=== PATIENT | male | born 1970 | race African-American/Black ===

== ENCOUNTER 2022-01-12 13:53 | Inpatient (IN) | payer OTHER ==
[2022-01-12 15:02] VITALS: BMI 23.7
[2022-01-12] MEDS ORDERED: ACETAMINOPHEN 325 MG TABLET (FP) PO PRN (16:20)
[2022-01-12] MEDS ORDERED: BISMUTH SUBSALICYLATE 524 MG/30 ML PO PRN (16:20)
[2022-01-12] MEDS ORDERED: NALOXONE (NARCAN) HCL 4 MG/0.1 ML SPRAY NS PRN (16:20)
[2022-01-12] MEDS ORDERED: MAG HYDROX/AL HYDROX/SIMETH 30 ML UNIT-DOSE CUP PO PRN (16:20)
[2022-01-12] MEDS ORDERED: MENTHOL/PHENOL 1 EACH UD MM PRN (16:20)
[2022-01-12] MEDS ORDERED: LOPERAMIDE HCL 2 MG CAPSULE PO PRN (16:20)
[2022-01-12] MEDS ORDERED: ONDANSETRON *ODT* 4 MG TABLET SL PRN (16:20)
[2022-01-12] MEDS ORDERED: IBUPROFEN 400 MG TABLET (FP) PO PRN (16:20)
[2022-01-12] MEDS: hydrOXYzine PAMOATE 25 MG CAPSULE (FP) PO SCH ×2 (17:40→23:04)
[2022-01-12] MEDS: THIAMINE HCL 100 MG TABLET (FP) PO SCH (23:04)
[2022-01-12] MEDS: MELATONIN 5 MG TABLETS PO SCH (23:04)
[2022-01-13] MEDS ORDERED: methaDONE HCL 10 MG TABLET (FOR DETOX USE ONLY) PO ONE (02:00)
[2022-01-13] MEDS ORDERED: cloNIDine HCL 0.1 MG TABLET PO PRN (02:00)
[2022-01-13] MEDS: hydrOXYzine PAMOATE 25 MG CAPSULE (FP) PO SCH ×5 (05:07→22:41)
[2022-01-13] MEDS: NICOTINE 10 MG CARTRIDGE (INHALER) IH PRN ×4 (05:37→22:42)
[2022-01-13] MEDS: METHOCARBAMOL 500 MG TABLET PO PRN (10:49)
[2022-01-13] MEDS: PRENATAL VITAMINS W/ FOLIC ACID TABLET (FP) PO SCH (10:49)
[2022-01-13 10:52] LABS: HEMATOCRIT 39.6 % (35.4-49); HEMOGLOBIN 13.6 GM/dL (11.7-16.9); MCH 30.5 pg (25.7-33.7); MCHC 34.3 g/dl (32.0-35.9); MEAN PLT VOLUME 7.8 fl (7.5-11.1); PLATELET COUNT 221 10^3/uL (134-434); RBC 4.45 M/mm3 (4.00-5.60); RDW 13.2 % (11.9-15.9); WHITE BLOOD COUNT 6.8 K/mm3 (4.0-10.0)
[2022-01-13 11:07] LABS: CREATININE 1.8 mg/dL (0.55-1.3)
[2022-01-13 11:09] LABS: BILIRUBIN,TOTAL 0.3 mg/dL (0.2-1); TOT PROT 7.9 g/dl (6.4-8.2)
[2022-01-13 11:12] LABS: BLOOD UREA NITROGEN 18.2 mg/dL (7-18)
[2022-01-13 11:13] LABS: CALCIUM 8.8 mg/dL (8.5-10.1)
[2022-01-13] MEDS: PANTOPRAZOLE 20 MG TABLET PO SCH (13:01)
[2022-01-13] MEDS: levETIRAcetam XR 750 MG TAB PO SCH ×2 (15:34→22:41)
[2022-01-13] MEDS: MAGNESIUM HYDROX 2400MG/30ML ORAL SUSPENSION 30 ML CUP PO PRN (18:48)
[2022-01-13] MEDS: THIAMINE HCL 100 MG TABLET (FP) PO SCH (22:40)
[2022-01-13] MEDS: MELATONIN 5 MG TABLETS PO SCH (22:40)
[2022-01-13] MEDS: RIVAROXABAN 15 MG TABLET PO SCH (22:57)
[2022-01-14] MEDS: hydrOXYzine PAMOATE 25 MG CAPSULE (FP) PO SCH ×5 (06:21→22:05)
[2022-01-14] MEDS: MAGNESIUM HYDROX 2400MG/30ML ORAL SUSPENSION 30 ML CUP PO PRN ×2 (06:22→23:17)
[2022-01-14] MEDS: NICOTINE 10 MG CARTRIDGE (INHALER) IH PRN ×4 (08:44→22:09)
[2022-01-14] MEDS ORDERED: methaDONE HCL 10 MG TABLET (FOR DETOX USE ONLY) ONE (09:19)
[2022-01-14] MEDS: HYDROCHLOROTHIAZIDE 25 MG TABLET (FP) PO SCH (10:40)
[2022-01-14] MEDS: levETIRAcetam XR 750 MG TAB PO SCH ×2 (10:40→22:05)
[2022-01-14] MEDS: PRENATAL VITAMINS W/ FOLIC ACID TABLET (FP) PO SCH (10:40)
[2022-01-14] MEDS: PANTOPRAZOLE 20 MG TABLET PO SCH (10:40)
[2022-01-14] MEDS ORDERED: HYDROCHLOROTHIAZIDE 12.5 MG CAPSULE (FP) PO SCH (14:00)
[2022-01-14 14:08] LABS: SARS-CoV-2 NAA Not Detected (Not Detected)
[2022-01-14] MEDS: MELATONIN 5 MG TABLETS PO SCH (22:05)
[2022-01-14] MEDS: THIAMINE HCL 100 MG TABLET (FP) PO SCH (22:06)
[2022-01-14] MEDS: RIVAROXABAN 15 MG TABLET PO SCH (22:08)
[2022-01-15] MEDS: hydrOXYzine PAMOATE 25 MG CAPSULE (FP) PO SCH ×5 (05:05→22:15)
[2022-01-15] MEDS: MAGNESIUM CITRATE 300 ML BOTTLE PO PRN (08:10)
[2022-01-15] MEDS: NICOTINE 10 MG CARTRIDGE (INHALER) IH PRN ×3 (08:40→22:17)
[2022-01-15] MEDS ORDERED: methaDONE HCL 10 MG TABLET (FOR DETOX USE ONLY) PO ONE (10:00)
[2022-01-15] MEDS: PANTOPRAZOLE 20 MG TABLET PO SCH (10:34)
[2022-01-15] MEDS: PRENATAL VITAMINS W/ FOLIC ACID TABLET (FP) PO SCH (10:34)
[2022-01-15] MEDS: HYDROCHLOROTHIAZIDE 25 MG TABLET (FP) PO SCH (10:34)
[2022-01-15] MEDS: levETIRAcetam XR 750 MG TAB PO SCH ×2 (10:34→22:15)
[2022-01-15 11:15] LABS: BLOOD UREA NITROGEN 14.6 mg/dL (7-18); CALCIUM 8.9 mg/dL (8.5-10.1)
[2022-01-15] MEDS: DOCUSATE SODIUM 100 MG CAPSULE (FP) PO SCH ×2 (14:31→22:15)
[2022-01-15] MEDS: RIVAROXABAN 15 MG TABLET PO SCH (17:36)
[2022-01-15] MEDS: THIAMINE HCL 100 MG TABLET (FP) PO SCH (22:15)
[2022-01-15] MEDS: MELATONIN 5 MG TABLETS PO SCH (22:16)
[2022-01-16] MEDS: NICOTINE 10 MG CARTRIDGE (INHALER) IH PRN ×5 (02:31→22:23)
[2022-01-16] MEDS: hydrOXYzine PAMOATE 25 MG CAPSULE (FP) PO SCH ×5 (05:45→22:20)
[2022-01-16] MEDS: DOCUSATE SODIUM 100 MG CAPSULE (FP) PO SCH ×3 (05:45→22:21)
[2022-01-16] MEDS ORDERED: methaDONE HCL 10 MG TABLET (FOR DETOX USE ONLY) ONE (09:33)
[2022-01-16] MEDS: HYDROCHLOROTHIAZIDE 25 MG TABLET (FP) PO SCH (10:08)
[2022-01-16] MEDS: PANTOPRAZOLE 20 MG TABLET PO SCH (10:10)
[2022-01-16] MEDS: PRENATAL VITAMINS W/ FOLIC ACID TABLET (FP) PO SCH (10:11)
[2022-01-16] MEDS: levETIRAcetam XR 750 MG TAB PO SCH ×2 (10:11→22:21)
[2022-01-16] MEDS: ACETAMINOPHEN 325 MG TABLET (FP) PO PRN ×2 (10:16→22:22)
[2022-01-16] MEDS: METHOCARBAMOL 500 MG TABLET PO PRN (15:05)
[2022-01-16] MEDS: RIVAROXABAN 15 MG TABLET PO SCH (17:28)
[2022-01-16] MEDS: MELATONIN 5 MG TABLETS PO SCH (22:21)
[2022-01-16] MEDS: THIAMINE HCL 100 MG TABLET (FP) PO SCH (22:21)
[2022-01-17] MEDS: NICOTINE 10 MG CARTRIDGE (INHALER) IH PRN ×4 (01:49→23:16)
[2022-01-17] MEDS: DOCUSATE SODIUM 100 MG CAPSULE (FP) PO SCH ×3 (06:05→22:23)
[2022-01-17] MEDS: hydrOXYzine PAMOATE 25 MG CAPSULE (FP) PO SCH ×5 (06:05→22:23)
[2022-01-17] MEDS: ACETAMINOPHEN 325 MG TABLET (FP) PO PRN ×3 (06:06→20:26)
[2022-01-17] MEDS ORDERED: methaDONE HCL 10 MG TABLET (FOR DETOX USE ONLY) PO ONE (10:00)
[2022-01-17] MEDS: HYDROCHLOROTHIAZIDE 25 MG TABLET (FP) PO SCH (10:28)
[2022-01-17] MEDS: PRENATAL VITAMINS W/ FOLIC ACID TABLET (FP) PO SCH (10:28)
[2022-01-17] MEDS: PANTOPRAZOLE 20 MG TABLET PO SCH (10:28)
[2022-01-17] MEDS: levETIRAcetam XR 750 MG TAB PO SCH ×2 (10:31→22:23)
[2022-01-17] MEDS: MAGNESIUM CITRATE 300 ML BOTTLE PO PRN (14:48)
[2022-01-17] MEDS: RIVAROXABAN 15 MG TABLET PO SCH (17:33)
[2022-01-17] MEDS: MELATONIN 5 MG TABLETS PO SCH (22:23)
[2022-01-17] MEDS: THIAMINE HCL 100 MG TABLET (FP) PO SCH (22:23)
[2022-01-18] MEDS: DOCUSATE SODIUM 100 MG CAPSULE (FP) PO SCH (06:24)
[2022-01-18] MEDS: hydrOXYzine PAMOATE 25 MG CAPSULE (FP) PO SCH ×2 (06:24→10:18)
[2022-01-18] MEDS: NICOTINE 10 MG CARTRIDGE (INHALER) IH PRN (09:10)
[2022-01-18] MEDS: levETIRAcetam XR 750 MG TAB PO SCH (10:17)
[2022-01-18] MEDS: PRENATAL VITAMINS W/ FOLIC ACID TABLET (FP) PO SCH (10:17)
[2022-01-18] MEDS: PANTOPRAZOLE 20 MG TABLET PO SCH (10:17)
[2022-01-18] MEDS: HYDROCHLOROTHIAZIDE 25 MG TABLET (FP) PO SCH (10:18)
[2022-01-18] MEDS: METHOCARBAMOL 500 MG TABLET PO PRN (10:27)
[2022-01-18 10:51] VITALS: BP 95/71; PULSE 68; TEMP 97
== END 2022-01-18 11:44 | disposition home or self-care (01) | DRG 773 ==
LOC: YASAS 13:53 → Y6N 17:21
PROVIDERS: ADMIT Allergy & Immunology; ATTEND Allergy & Immunology
PROC: HZ2ZZZZ Detoxification Services for Substance Abuse Treatment (ICD-10-PCS; principal; 2022-01-12)
DX: F11.23 Opioid dependence with withdrawal (principal); F14.20 Cocaine dependence, uncomplicated; F17.210 Nicotine dependence, cigarettes, uncomplicated; F19.280 Other psychoactive substance dependence with psychoactive substance-induced anxiety disorder; F19.282 Other psychoactive substance dependence with psychoactive substance-induced sleep disorder; F32.A Depression, unspecified; G40.909 Epilepsy, unspecified, not intractable, without status epilepticus; I10 Essential (primary) hypertension; E78.5 Hyperlipidemia, unspecified; R79.89 Other specified abnormal findings of blood chemistry; Z86.19 Personal history of other infectious and parasitic diseases; Z86.718 Personal history of other venous thrombosis and embolism; Z79.01 Long term (current) use of anticoagulants
CPT/HCPCS: 36415; 80048; 80053; 85027; 86780; 93005; 93010; C9803; U0003; U0005

== ENCOUNTER 2022-01-18 11:47 | Inpatient (IN) | payer OTHER ==
[2022-01-18] MEDS ORDERED: MAGNESIUM HYDROX 2400MG/30ML ORAL SUSPENSION 30 ML CUP PO PRN (12:46)
[2022-01-18] MEDS ORDERED: IBUPROFEN 400 MG TABLET (FP) PO PRN (12:46)
[2022-01-18] MEDS ORDERED: P-EPHED 60MG/TRIPROLIDI 2.5MG TABLET PO PRN (12:46)
[2022-01-18] MEDS ORDERED: MAG HYDROX/AL HYDROX/SIMETH 30 ML UNIT-DOSE CUP PO PRN (12:46)
[2022-01-18] MEDS ORDERED: MAGNESIUM CITRATE 300 ML BOTTLE PO PRN (12:46)
[2022-01-18] MEDS ORDERED: LOPERAMIDE HCL 2 MG CAPSULE PO PRN (12:46)
[2022-01-18] MEDS ORDERED: guaiFENesin 200 MG/10 ML 10 ML UNIT-DOSE CUPS PO PRN (12:46)
[2022-01-18] MEDS: NICOTINE 10 MG CARTRIDGE (INHALER) IH PRN (17:58)
[2022-01-18] MEDS: MELATONIN 5 MG TABLETS PO SCH (21:33)
[2022-01-18] MEDS: THIAMINE HCL 100 MG TABLET (FP) PO SCH (21:33)
[2022-01-18] MEDS: ACETAMINOPHEN 325 MG TABLET (FP) PO PRN (21:34)
[2022-01-18] MEDS: RIVAROXABAN 15 MG TABLET PO SCH (21:42)
[2022-01-19] MEDS: levETIRAcetam XR 750 MG TAB PO SCH ×3 (00:06→21:01)
[2022-01-19] MEDS: ACETAMINOPHEN 325 MG TABLET (FP) PO PRN ×2 (09:11→14:50)
[2022-01-19] MEDS: NICOTINE 10 MG CARTRIDGE (INHALER) IH PRN ×4 (09:12→21:47)
[2022-01-19] MEDS: PRENATAL VITAMINS W/ FOLIC ACID TABLET (FP) PO SCH (09:28)
[2022-01-19] MEDS: amLODIPine BESYLATE 10 MG TABLET (FP) PO SCH (09:28)
[2022-01-19] MEDS: PANTOPRAZOLE 20 MG TABLET PO SCH (09:28)
[2022-01-19] MEDS: HYDROCHLOROTHIAZIDE 12.5 MG CAPSULE (FP) PO SCH (09:28)
[2022-01-19] MEDS ORDERED: amLODIPine BESYLATE 10 MG TABLET (FP) PO SCH (10:00)
[2022-01-19] MEDS: LISINOPRIL 20 MG TABLET PO SCH (12:04)
[2022-01-19] MEDS: RIVAROXABAN 15 MG TABLET PO SCH (18:45)
[2022-01-19] MEDS: THIAMINE HCL 100 MG TABLET (FP) PO SCH (21:01)
[2022-01-19] MEDS: MELATONIN 5 MG TABLETS PO SCH (21:01)
[2022-01-20] MEDS: NICOTINE 10 MG CARTRIDGE (INHALER) IH PRN ×3 (09:02→18:20)
[2022-01-20] MEDS: amLODIPine BESYLATE 10 MG TABLET (FP) PO SCH (09:02)
[2022-01-20] MEDS: PANTOPRAZOLE 20 MG TABLET PO SCH (09:02)
[2022-01-20] MEDS: PRENATAL VITAMINS W/ FOLIC ACID TABLET (FP) PO SCH (09:02)
[2022-01-20] MEDS: LISINOPRIL 20 MG TABLET PO SCH (09:02)
[2022-01-20] MEDS: HYDROCHLOROTHIAZIDE 12.5 MG CAPSULE (FP) PO SCH (09:02)
[2022-01-20] MEDS: levETIRAcetam XR 750 MG TAB PO SCH ×2 (10:35→21:29)
[2022-01-20] MEDS: ACETAMINOPHEN 325 MG TABLET (FP) PO PRN ×2 (13:32→19:55)
[2022-01-20] MEDS: RIVAROXABAN 15 MG TABLET PO SCH (18:20)
[2022-01-20] MEDS: THIAMINE HCL 100 MG TABLET (FP) PO SCH (21:29)
[2022-01-20] MEDS: MELATONIN 5 MG TABLETS PO SCH (21:29)
[2022-01-21] MEDS: NICOTINE 10 MG CARTRIDGE (INHALER) IH PRN ×3 (08:35→17:39)
[2022-01-21] MEDS: PANTOPRAZOLE 20 MG TABLET PO SCH (10:31)
[2022-01-21] MEDS: amLODIPine BESYLATE 10 MG TABLET (FP) PO SCH (10:31)
[2022-01-21] MEDS: HYDROCHLOROTHIAZIDE 12.5 MG CAPSULE (FP) PO SCH (10:31)
[2022-01-21] MEDS: LISINOPRIL 20 MG TABLET PO SCH (10:31)
[2022-01-21] MEDS: PRENATAL VITAMINS W/ FOLIC ACID TABLET (FP) PO SCH (10:32)
[2022-01-21] MEDS: levETIRAcetam XR 750 MG TAB PO SCH ×2 (10:32→21:01)
[2022-01-21] MEDS: RIVAROXABAN 15 MG TABLET PO SCH (17:38)
[2022-01-21] MEDS: ACETAMINOPHEN 325 MG TABLET (FP) PO PRN (19:16)
[2022-01-21] MEDS: MELATONIN 5 MG TABLETS PO SCH (21:01)
[2022-01-21] MEDS: THIAMINE HCL 100 MG TABLET (FP) PO SCH (21:01)
[2022-01-22 08:08] LABS: SARS-CoV-2 NAA Not Detected (Not Detected)
[2022-01-22] MEDS: NICOTINE 10 MG CARTRIDGE (INHALER) IH PRN ×3 (08:09→22:10)
[2022-01-22] MEDS: PRENATAL VITAMINS W/ FOLIC ACID TABLET (FP) PO SCH (09:51)
[2022-01-22] MEDS: HYDROCHLOROTHIAZIDE 12.5 MG CAPSULE (FP) PO SCH (09:52)
[2022-01-22] MEDS: LISINOPRIL 20 MG TABLET PO SCH (09:53)
[2022-01-22] MEDS: amLODIPine BESYLATE 10 MG TABLET (FP) PO SCH (09:53)
[2022-01-22] MEDS: PANTOPRAZOLE 20 MG TABLET PO SCH (09:53)
[2022-01-22] MEDS: levETIRAcetam XR 750 MG TAB PO SCH ×2 (09:54→22:09)
[2022-01-22] MEDS: RIVAROXABAN 15 MG TABLET PO SCH (17:55)
[2022-01-22] MEDS: THIAMINE HCL 100 MG TABLET (FP) PO SCH (22:09)
[2022-01-22] MEDS: hydrOXYzine PAMOATE 25 MG CAPSULE (FP) PO PRN (22:09)
[2022-01-22] MEDS: MELATONIN 5 MG TABLETS PO SCH (22:09)
[2022-01-22] MEDS: ACETAMINOPHEN 325 MG TABLET (FP) PO PRN (22:10)
[2022-01-23] MEDS: NICOTINE 10 MG CARTRIDGE (INHALER) IH PRN ×4 (08:24→21:28)
[2022-01-23] MEDS: PRENATAL VITAMINS W/ FOLIC ACID TABLET (FP) PO SCH (09:46)
[2022-01-23] MEDS: HYDROCHLOROTHIAZIDE 12.5 MG CAPSULE (FP) PO SCH (09:46)
[2022-01-23] MEDS: LISINOPRIL 20 MG TABLET PO SCH (09:46)
[2022-01-23] MEDS: PANTOPRAZOLE 20 MG TABLET PO SCH (09:46)
[2022-01-23] MEDS: levETIRAcetam XR 750 MG TAB PO SCH ×2 (09:46→21:04)
[2022-01-23] MEDS: amLODIPine BESYLATE 10 MG TABLET (FP) PO SCH (09:47)
[2022-01-23] MEDS: RIVAROXABAN 15 MG TABLET PO SCH (17:31)
[2022-01-23] MEDS: ACETAMINOPHEN 325 MG TABLET (FP) PO PRN (21:04)
[2022-01-23] MEDS: MELATONIN 5 MG TABLETS PO SCH (21:04)
[2022-01-23] MEDS: THIAMINE HCL 100 MG TABLET (FP) PO SCH (21:04)
[2022-01-23] MEDS: hydrOXYzine PAMOATE 25 MG CAPSULE (FP) PO PRN (21:05)
[2022-01-24] MEDS: ACETAMINOPHEN 325 MG TABLET (FP) PO PRN ×3 (06:14→22:19)
[2022-01-24] MEDS: NICOTINE 10 MG CARTRIDGE (INHALER) IH PRN ×4 (08:11→21:42)
[2022-01-24] MEDS: levETIRAcetam XR 750 MG TAB PO SCH ×2 (10:01→21:27)
[2022-01-24] MEDS: PANTOPRAZOLE 20 MG TABLET PO SCH (10:02)
[2022-01-24] MEDS: PRENATAL VITAMINS W/ FOLIC ACID TABLET (FP) PO SCH (10:03)
[2022-01-24] MEDS: HYDROCHLOROTHIAZIDE 12.5 MG CAPSULE (FP) PO SCH (13:04)
[2022-01-24] MEDS: amLODIPine BESYLATE 10 MG TABLET (FP) PO SCH (13:04)
[2022-01-24] MEDS: LISINOPRIL 20 MG TABLET PO SCH (13:04)
[2022-01-24] MEDS: RIVAROXABAN 15 MG TABLET PO SCH (17:18)
[2022-01-24] MEDS: MELATONIN 5 MG TABLETS PO SCH (21:27)
[2022-01-24] MEDS: THIAMINE HCL 100 MG TABLET (FP) PO SCH (21:27)
[2022-01-25] MEDS: ACETAMINOPHEN 325 MG TABLET (FP) PO PRN ×2 (07:00→21:09)
[2022-01-25] MEDS: hydrOXYzine PAMOATE 25 MG CAPSULE (FP) PO PRN (08:57)
[2022-01-25] MEDS: NICOTINE 10 MG CARTRIDGE (INHALER) IH PRN ×4 (08:59→21:09)
[2022-01-25] MEDS: HYDROCHLOROTHIAZIDE 12.5 MG CAPSULE (FP) PO SCH (10:17)
[2022-01-25] MEDS: amLODIPine BESYLATE 10 MG TABLET (FP) PO SCH (10:17)
[2022-01-25] MEDS: PRENATAL VITAMINS W/ FOLIC ACID TABLET (FP) PO SCH (10:17)
[2022-01-25] MEDS: levETIRAcetam XR 750 MG TAB PO SCH ×2 (10:17→21:07)
[2022-01-25] MEDS: LISINOPRIL 20 MG TABLET PO SCH (10:17)
[2022-01-25] MEDS: PANTOPRAZOLE 20 MG TABLET PO SCH (10:29)
[2022-01-25] MEDS: RIVAROXABAN 15 MG TABLET PO SCH (19:02)
[2022-01-25] MEDS: THIAMINE HCL 100 MG TABLET (FP) PO SCH (21:06)
[2022-01-25] MEDS: MELATONIN 5 MG TABLETS PO SCH (21:06)
[2022-01-26] MEDS: PANTOPRAZOLE 20 MG TABLET PO SCH (10:07)
[2022-01-26] MEDS: amLODIPine BESYLATE 10 MG TABLET (FP) PO SCH (10:07)
[2022-01-26] MEDS: levETIRAcetam XR 750 MG TAB PO SCH ×2 (10:07→21:35)
[2022-01-26] MEDS: LISINOPRIL 20 MG TABLET PO SCH (10:07)
[2022-01-26] MEDS: HYDROCHLOROTHIAZIDE 12.5 MG CAPSULE (FP) PO SCH (10:07)
[2022-01-26] MEDS: PRENATAL VITAMINS W/ FOLIC ACID TABLET (FP) PO SCH (10:07)
[2022-01-26] MEDS: NICOTINE 10 MG CARTRIDGE (INHALER) IH PRN ×3 (12:45→21:36)
[2022-01-26] MEDS: RIVAROXABAN 15 MG TABLET PO SCH (17:55)
[2022-01-26] MEDS: THIAMINE HCL 100 MG TABLET (FP) PO SCH (21:35)
[2022-01-26] MEDS: MELATONIN 5 MG TABLETS PO SCH (21:35)
[2022-01-26] MEDS: hydrOXYzine PAMOATE 25 MG CAPSULE (FP) PO PRN (21:35)
[2022-01-26] MEDS: ACETAMINOPHEN 325 MG TABLET (FP) PO PRN (21:36)
[2022-01-27] MEDS: NICOTINE 10 MG CARTRIDGE (INHALER) IH PRN ×5 (08:00→21:02)
[2022-01-27] MEDS: PRENATAL VITAMINS W/ FOLIC ACID TABLET (FP) PO SCH (10:23)
[2022-01-27] MEDS: levETIRAcetam XR 750 MG TAB PO SCH ×2 (10:24→21:01)
[2022-01-27] MEDS: HYDROCHLOROTHIAZIDE 12.5 MG CAPSULE (FP) PO SCH (10:24)
[2022-01-27] MEDS: amLODIPine BESYLATE 10 MG TABLET (FP) PO SCH (10:24)
[2022-01-27] MEDS: LISINOPRIL 20 MG TABLET PO SCH (10:24)
[2022-01-27] MEDS: PANTOPRAZOLE 20 MG TABLET PO SCH (10:24)
[2022-01-27] MEDS: ACETAMINOPHEN 325 MG TABLET (FP) PO PRN ×2 (11:59→21:02)
[2022-01-27] MEDS: RIVAROXABAN 15 MG TABLET PO SCH (17:49)
[2022-01-27] MEDS: THIAMINE HCL 100 MG TABLET (FP) PO SCH (21:01)
[2022-01-27] MEDS: MELATONIN 5 MG TABLETS PO SCH (21:02)
[2022-01-28] MEDS: ACETAMINOPHEN 325 MG TABLET (FP) PO PRN ×4 (07:51→22:35)
[2022-01-28] MEDS: HYDROCHLOROTHIAZIDE 12.5 MG CAPSULE (FP) PO SCH (10:05)
[2022-01-28] MEDS: amLODIPine BESYLATE 10 MG TABLET (FP) PO SCH (10:05)
[2022-01-28] MEDS: levETIRAcetam XR 750 MG TAB PO SCH ×2 (10:05→21:33)
[2022-01-28] MEDS: PANTOPRAZOLE 20 MG TABLET PO SCH (10:06)
[2022-01-28] MEDS: LISINOPRIL 20 MG TABLET PO SCH (10:06)
[2022-01-28] MEDS: PRENATAL VITAMINS W/ FOLIC ACID TABLET (FP) PO SCH (10:06)
[2022-01-28] MEDS: BENZOCAINE 20 % GEL TUBE MM PRN ×2 (12:11→18:39)
[2022-01-28] MEDS: NICOTINE 10 MG CARTRIDGE (INHALER) IH PRN ×2 (13:13→17:13)
[2022-01-28] MEDS: RIVAROXABAN 15 MG TABLET PO SCH (17:12)
[2022-01-28] MEDS: MELATONIN 5 MG TABLETS PO SCH (21:33)
[2022-01-28] MEDS: hydrOXYzine PAMOATE 25 MG CAPSULE (FP) PO PRN (21:33)
[2022-01-28] MEDS: THIAMINE HCL 100 MG TABLET (FP) PO SCH (21:33)
[2022-01-29] MEDS: ACETAMINOPHEN 325 MG TABLET (FP) PO PRN ×3 (07:30→21:33)
[2022-01-29] MEDS: BENZOCAINE 20 % GEL TUBE MM PRN ×3 (07:32→22:11)
[2022-01-29] MEDS: levETIRAcetam XR 750 MG TAB PO SCH ×2 (10:04→21:35)
[2022-01-29] MEDS: HYDROCHLOROTHIAZIDE 12.5 MG CAPSULE (FP) PO SCH (10:04)
[2022-01-29] MEDS: amLODIPine BESYLATE 10 MG TABLET (FP) PO SCH (10:04)
[2022-01-29] MEDS: PANTOPRAZOLE 20 MG TABLET PO SCH (10:04)
[2022-01-29] MEDS: LISINOPRIL 20 MG TABLET PO SCH (10:04)
[2022-01-29] MEDS: PRENATAL VITAMINS W/ FOLIC ACID TABLET (FP) PO SCH (10:04)
[2022-01-29] MEDS: NICOTINE 10 MG CARTRIDGE (INHALER) IH PRN ×4 (10:05→21:35)
[2022-01-29] MEDS: RIVAROXABAN 15 MG TABLET PO SCH (17:58)
[2022-01-29] MEDS: hydrOXYzine PAMOATE 25 MG CAPSULE (FP) PO PRN (21:34)
[2022-01-29] MEDS: MELATONIN 5 MG TABLETS PO SCH (21:35)
[2022-01-29] MEDS: THIAMINE HCL 100 MG TABLET (FP) PO SCH (21:35)
[2022-01-30] MEDS: ACETAMINOPHEN 325 MG TABLET (FP) PO PRN ×4 (06:02→22:10)
[2022-01-30] MEDS: NICOTINE 10 MG CARTRIDGE (INHALER) IH PRN ×4 (06:03→22:11)
[2022-01-30] MEDS: BENZOCAINE 20 % GEL TUBE MM PRN ×4 (06:03→22:30)
[2022-01-30] MEDS: LISINOPRIL 20 MG TABLET PO SCH (09:57)
[2022-01-30] MEDS: amLODIPine BESYLATE 10 MG TABLET (FP) PO SCH (09:57)
[2022-01-30] MEDS: levETIRAcetam XR 750 MG TAB PO SCH ×2 (09:57→22:08)
[2022-01-30] MEDS: hydrOXYzine PAMOATE 25 MG CAPSULE (FP) PO PRN ×2 (09:57→22:09)
[2022-01-30] MEDS: PANTOPRAZOLE 20 MG TABLET PO SCH (09:57)
[2022-01-30] MEDS: PRENATAL VITAMINS W/ FOLIC ACID TABLET (FP) PO SCH (09:57)
[2022-01-30] MEDS: HYDROCHLOROTHIAZIDE 12.5 MG CAPSULE (FP) PO SCH (09:57)
[2022-01-30] MEDS: RIVAROXABAN 15 MG TABLET PO SCH (19:33)
[2022-01-30] MEDS: MELATONIN 5 MG TABLETS PO SCH (22:09)
[2022-01-30] MEDS: THIAMINE HCL 100 MG TABLET (FP) PO SCH (22:09)
[2022-01-31] MEDS: BENZOCAINE 20 % GEL TUBE MM PRN (06:12)
[2022-01-31] MEDS: NICOTINE 10 MG CARTRIDGE (INHALER) IH PRN ×3 (06:12→12:53)
[2022-01-31] MEDS: ACETAMINOPHEN 325 MG TABLET (FP) PO PRN ×4 (06:12→21:01)
[2022-01-31] MEDS: PRENATAL VITAMINS W/ FOLIC ACID TABLET (FP) PO SCH (09:45)
[2022-01-31] MEDS: PANTOPRAZOLE 20 MG TABLET PO SCH (09:45)
[2022-01-31] MEDS: levETIRAcetam XR 750 MG TAB PO SCH ×2 (09:45→21:02)
[2022-01-31] MEDS: HYDROCHLOROTHIAZIDE 12.5 MG CAPSULE (FP) PO SCH (09:46)
[2022-01-31] MEDS: amLODIPine BESYLATE 10 MG TABLET (FP) PO SCH (09:46)
[2022-01-31] MEDS: LISINOPRIL 20 MG TABLET PO SCH (09:46)
[2022-01-31] MEDS: hydrOXYzine PAMOATE 25 MG CAPSULE (FP) PO PRN ×2 (09:47→21:01)
[2022-01-31] MEDS: RIVAROXABAN 15 MG TABLET PO SCH (17:24)
[2022-01-31] MEDS: THIAMINE HCL 100 MG TABLET (FP) PO SCH (21:00)
[2022-01-31] MEDS: MELATONIN 5 MG TABLETS PO SCH (21:01)
[2022-02-01] MEDS: BENZOCAINE 20 % GEL TUBE MM PRN ×2 (01:40→08:02)
[2022-02-01] MEDS: ACETAMINOPHEN 325 MG TABLET (FP) PO PRN ×2 (01:40→08:00)
[2022-02-01 06:54] VITALS: BP 106/73; PULSE 60; TEMP 98.4
[2022-02-01] MEDS: NICOTINE 10 MG CARTRIDGE (INHALER) IH PRN (08:02)
[2022-02-01] MEDS: HYDROCHLOROTHIAZIDE 12.5 MG CAPSULE (FP) PO SCH (09:40)
[2022-02-01] MEDS: PRENATAL VITAMINS W/ FOLIC ACID TABLET (FP) PO SCH (09:40)
[2022-02-01] MEDS: LISINOPRIL 20 MG TABLET PO SCH (09:41)
[2022-02-01] MEDS: amLODIPine BESYLATE 10 MG TABLET (FP) PO SCH (09:41)
[2022-02-01] MEDS: levETIRAcetam XR 750 MG TAB PO SCH (09:41)
[2022-02-01] MEDS: PANTOPRAZOLE 20 MG TABLET PO SCH (09:42)
== END 2022-02-01 09:47 | disposition home or self-care (01) | DRG 772 ==
LOC: YASAS 11:47 → Y3W 11:48
PROVIDERS: ADMIT Allergy & Immunology; ATTEND Allergy & Immunology
PROC: HZ42ZZZ Group Counseling for Substance Abuse Treatment, Cognitive-Behavioral (ICD-10-PCS; principal; 2022-01-18)
DX: F11.20 Opioid dependence, uncomplicated (principal); F14.20 Cocaine dependence, uncomplicated; G40.909 Epilepsy, unspecified, not intractable, without status epilepticus; I10 Essential (primary) hypertension; Z72.0 Tobacco use; Z86.718 Personal history of other venous thrombosis and embolism; Z79.01 Long term (current) use of anticoagulants
CPT/HCPCS: C9803-CS; U0003; U0005

== ENCOUNTER 2024-07-04 12:04 | Inpatient (IN) | payer OTHER ==
[2024-07-04 12:55] VITALS: BMI 23.1
[2024-07-04] MEDS ORDERED: MAG HYDROX/AL HYDROX/SIMETH 30 ML UNIT-DOSE CUP PO PRN (13:24)
[2024-07-04] MEDS ORDERED: LOPERAMIDE HCL 2 MG CAPSULE PO PRN (13:24)
[2024-07-04] MEDS ORDERED: NALOXONE HCL 0.4 MG/ML VIAL IM PRN (13:24)
[2024-07-04] MEDS ORDERED: IBUPROFEN 400 MG TABLET (FP) PO PRN (13:24)
[2024-07-04] MEDS ORDERED: IBUPROFEN 600 MG TABLET (FP) PO PRN (13:24)
[2024-07-04] MEDS ORDERED: MAGNESIUM HYDROX 2400MG/30ML ORAL SUSPENSION 30 ML CUP PO PRN (13:24)
[2024-07-04] MEDS ORDERED: DICYCLOMINE HCL 10 MG CAPSULE PO PRN (13:24)
[2024-07-04] MEDS ORDERED: BENZOCAINE/MENTHOL (CHLORASEPTIC ) LOZENGE MM PRN (13:24)
[2024-07-04] MEDS ORDERED: BENZONATATE 200 MG CAPSULE PO PRN (13:24)
[2024-07-04] MEDS ORDERED: NALOXONE (NARCAN) HCL 4 MG/0.1 ML SPRAY NS PRN (13:24)
[2024-07-04] MEDS ORDERED: ONDANSETRON *ODT* 4 MG TABLET SL PRN (13:24)
[2024-07-04] MEDS ORDERED: guaiFENesin 600 MG TABLET.ER (FP) PO PRN (13:24)
[2024-07-04] MEDS ORDERED: P-EPHED 60MG/TRIPROLIDI 2.5MG TABLET PO PRN (13:24)
[2024-07-04] MEDS ORDERED: BISMUTH SUBSALICYLATE 524 MG/30 ML PO PRN (13:24)
[2024-07-04] MEDS ORDERED: NICOTINE POLACRILEX 2 MG LOZENGE BC PRN (13:24)
[2024-07-04] MEDS ORDERED: ASPIRIN 81 MG CHEWABLE TABLETS ONE (15:06)
[2024-07-04] MEDS: ASPIRIN COATED 81 MG TABLET.EC PO SCH (15:08)
[2024-07-04] MEDS: cloNIDine HCL 0.1 MG TABLET PO ONE (16:15)
[2024-07-04] MEDS: MELATONIN 5 MG TABLETS PO SCH (21:36)
[2024-07-04] MEDS: THIAMINE 100 MG TABLET PO SCH (21:36)
[2024-07-05] MEDS: PRENATAL VITAMINS W/ FOLIC ACID TABLET (FP) PO SCH (09:22)
[2024-07-05] MEDS: PANTOPRAZOLE 20 MG TABLET PO SCH (09:22)
[2024-07-05 09:24] LABS: HEMATOCRIT 35.8 % (35.4-49); HEMOGLOBIN 12.1 GM/dL (11.7-16.9); MCHC 33.8 g/dl (32.0-35.9); MEAN CELL VOLUME 88.6 fl (80-96); MEAN PLT VOLUME 8.4 fl (7.5-11.1); PLATELET COUNT 160 10^3/uL (134-434); RBC 4.04 M/mm3 (4.00-5.60); RDW 14.2 % (11.9-15.9); WHITE BLOOD COUNT 4.3 K/mm3 (4.0-10.0)
[2024-07-05 09:29] LABS: POTASSIUM 3.9 mmol/L (3.5-5.1)
[2024-07-05 09:38] LABS: ALBUMIN 3.2 g/dl (3.4-5.0)
[2024-07-05 09:40] LABS: CALCIUM 8.5 mg/dL (8.5-10.1)
[2024-07-05 09:41] LABS: BLOOD UREA NITROGEN 19.7 mg/dL (7-18)
[2024-07-05 09:44] LABS: CREATININE 1.3 mg/dL (0.55-1.3)
[2024-07-05 09:45] LABS: BILIRUBIN,TOTAL 0.2 mg/dL (0.2-1); TOT PROT 6.2 g/dl (6.4-8.2)
[2024-07-05] MEDS: ACETAMINOPHEN 325 MG TABLET (FP) PO PRN (10:15)
[2024-07-05] MEDS: methaDONE HCL 10 MG TABLET (FOR DETOX USE ONLY) PO ONE (10:15)
[2024-07-05] MEDS: levETIRAcetam XR 750 MG TAB PO SCH (10:34)
[2024-07-05] MEDS: RIVAROXABAN 15 MG TABLET PO SCH (10:35)
[2024-07-05] MEDS: cloNIDine HCL 0.1 MG TABLET PO PRN (10:58)
[2024-07-05] MEDS: NICOTINE POLACRILEX 2 MG GUM BUC PRN (13:17)
[2024-07-05] MEDS: cloNIDine HCL 0.1 MG TABLET PO ONE (14:45)
[2024-07-05] MEDS: hydrOXYzine PAMOATE 25 MG CAPSULE (FP) PO PRN (22:05)
[2024-07-05] MEDS: METHOCARBAMOL 500 MG TABLET PO PRN (22:05)
[2024-07-06] MEDS: POLYETHYLENE GLYCOL (HEALTHYLAX) 3350 17 GM PACKET PO PRN (20:21)
[2024-07-07] MEDS: methaDONE HCL 10 MG TABLET (FOR DETOX USE ONLY) PO ONE (09:41)
[2024-07-08] MEDS: DOCUSATE SODIUM 100 MG CAPSULE (FP) PO SCH (22:01)
[2024-07-08] MEDS: cloNIDine HCL 0.1 MG TABLET PO ONE (22:44)
[2024-07-09] MEDS: amLODIPine BESYLATE 10 MG TABLET (FP) PO ONE (08:28)
[2024-07-09] MEDS: methaDONE HCL 10 MG TABLET (FOR DETOX USE ONLY) PO ONE (09:04)
[2024-07-09] MEDS: cloNIDine HCL 0.1 MG TABLET PO ONE (10:10)
[2024-07-10 08:56] VITALS: BP 132/76; PULSE 81; RESP 18; TEMP 98.3
[2024-07-10] MEDS: amLODIPine BESYLATE 10 MG TABLET (FP) PO SCH (09:09)
== END 2024-07-10 09:21 | disposition home or self-care (01) | DRG 773 ==
LOC: YASAS 12:04 → Y3N 14:42
PROVIDERS: ADMIT Allergy & Immunology; ATTEND Surgery
PROC: HZ2ZZZZ Detoxification Services for Substance Abuse Treatment (ICD-10-PCS; principal; 2024-07-04)
DX: F11.23 Opioid dependence with withdrawal (principal); F14.20 Cocaine dependence, uncomplicated; F12.20 Cannabis dependence, uncomplicated; F17.210 Nicotine dependence, cigarettes, uncomplicated; I10 Essential (primary) hypertension; R56.9 Unspecified convulsions; Z86.718 Personal history of other venous thrombosis and embolism; Z79.01 Long term (current) use of anticoagulants
CPT/HCPCS: 36415; 80053; 80305; 85027; 86780; 93005; 93010